=== PATIENT | female | born 1955 | race Caucasian/White ===

== ENCOUNTER 2020-08-18 15:51 | Emergency (ER) | payer OTHER ==
[~2020-08-18] VITALS: Ht 165.1 cm; Wt 70.3 kg
[2020-08-18 15:51] VITALS: BP_SYST 125
[2020-08-18] MEDS ORDERED: KETOROLAC TROMETHAMINE 30 MG VIAL IM ONE (16:15)
[2020-08-18] MEDS ORDERED: DIPH-TET-PERTUS Vaccine 0.5 ML VIAL (ADACEL) I.M. ONE (16:15)
[2020-08-18] MEDS ORDERED: HYDR-4272 PO (17:29)
[2020-08-18] MEDS ORDERED: IBUP-1969 PO (17:29)
[2020-08-18 17:59] VITALS: BP_SYST 125
== END 2020-08-18 19:27 | disposition home or self-care (01) ==
LOC: SED 15:51
DX: S01.83XA Puncture wound without foreign body of other part of head, initial encounter (principal); M54.2 Cervicalgia; E07.9 Disorder of thyroid, unspecified; Z79.899 Other long term (current) drug therapy; W22.8XXA Striking against or struck by other objects, initial encounter; Y93.89 Activity, other specified; Y92.89 Other specified places as the place of occurrence of the external cause; Y99.8 Other external cause status
CPT/HCPCS: 70450-TC; 72125-TC; 76376; 96372; 99285

== ENCOUNTER 2022-02-08 11:20 | Emergency (ER) | payer OTHER ==
[~2022-02-08] VITALS: Ht 165.1 cm; Wt 63.5 kg
[~2022-02-08 11:20] MED LIST: HYDR-4272 PO; IBUP-1969 PO
[2022-02-08 11:27] VITALS: BP_SYST 134
--- NOTE | 2022-02-08 11:45 | NUR ---
Patient to ER bed 4 to gown for evaluation. Side rails up. Report given to Doni HUERTAS.
--- NOTE | 2022-02-08 11:56 | NUR ---
PT BIBA FROM WORK/PT WAS AT WORK FELT CHEST PAIN RADIATING TO BACK DISCRIBED A PULLING SENSATION. PAIN LEVEL 7/10. PT DENIES ARM PAIN OR SHORTNESS OF BREATH. PT O2 LEVEL 96 02 AND HR IS 67. VS ARE WITHIN NORMAL LIMITS/PLACED PT ON MONITOR. PT IS IN BED WITH BED LOWERED, LOCKED AND RAILS UP. WILL CONTINUE TO MONITOR
[2022-02-08 12:31] LABS: BASOPHILS % (AUTO) 0.9 % (0.0-2.0); EOSINOPHILS # (AUTO) 0.1 K/uL (0.0-0.4); EOSINOPHILS % (AUTO) 2.8 % (0.0-4.0); HEMATOCRIT 42.7 % (36-48); HEMOGLOBIN 14.3 g/dL (12.0-16.0); LYMPHOCYTES # (AUTO) 0.9 K/uL (1.0-5.5); LYMPHOCYTES % (AUTO) 21.5 % (20.5-51.5); MEAN CORPUSCULAR HEMOGLOBIN 29 pg (27-31); MEAN CORPUSCULAR HGB CONC 34 % (32-36); MEAN CORPUSCULAR VOLUME 87 fL (79.0-98.0); MONOCYTES # (AUTO) 0.2 K/uL (0.0-1.0); MONOCYTES % (AUTO) 5.7 % (1.7-9.3); NEUTROPHILS % (AUTO) 69.1 % (40.0-70.0); PLATELET COUNT (AUTO) 193 K/uL (130-430); RED BLOOD CELL COUNT(AUTO) 4.94 MIL/uL (4.2-6.2); RED CELL DISTRIBUTION WIDTH 13.8 % (9.0-15.0); WHITE BLOOD COUNT (AUTO) 4.3 K/uL (4.8-10.8)
--- NOTE | 2022-02-08 13:25 | NUR ---
Dr Malloy submited orders for pt
[2022-02-08] MEDS ORDERED: ONDANSETRON HCL 4 MG/2 ML VIAL IVP ONE ×2 (13:30)
[2022-02-08] MEDS ORDERED: NITROGLYCERIN 0.4 MG TAB.SUBL SL ONE (13:30)
[2022-02-08] MEDS ORDERED: ASPIRIN 81 MG TAB.CHEW PO ONE (13:30)
[2022-02-08 13:35] LABS: ANION GAP 6 (5-15); CALCIUM 8.8 mg/dL (8.4-11.0); CHLORIDE 107 mmol/L (98-107); CREATININE 1.09 mg/dL (0.55-1.30); GLUCOSE 90 mg/dL (70-99); POTASSIUM 3.9 mmol/L (3.5-5.1); SODIUM SERUM 140 mmol/L (136-145); UREA NITROGEN, BLOOD 17 mg/dL (8-21)
[2022-02-08 13:36] LABS: GFR AFRICAN AMERICAN 64 mL/min (>90)
--- NOTE | 2022-02-08 13:53 | NUR ---
IV CATH STARTED TO LAC 20G. SCHEDULED MEDS GIVEN, PT EDUCATED ON THE RISKS AND BENEFITS OF EACH MEDICATION. PT VERBALIZED UNDERSTANDING.
[2022-02-08 13:58] LABS: ALANINE AMINOTRANSFERASE 13 U/L (12-78); ALBUMIN 3.4 g/dL (3.4-4.8); ASPARTATE AMINOTRANSFERASE 18 U/L (10-37); TOTAL BILIRUBIN 0.7 mg/dL (0.0-1.0)
[2022-02-08] MEDS ORDERED: ACETAMINOPHEN 325 MG TABLET PO ONE (14:15)
[2022-02-08] MEDS ORDERED: KETOROLAC TROMETHAMINE 15 MG VIAL IVP ONE (14:15)
[2022-02-08] MEDS ORDERED: METOCLOPRAMIDE HCL 10 MG/2 ML VIAL IVP ONE (14:15)
[2022-02-08] MEDS ORDERED: NACL 0.9% 1,000 ML IV ONE (14:15)
[2022-02-08 14:19] LABS: INR 0.9 (0.8-1.2); PROTHROMBIN TIME 9.9 SECS (9.5-12.5)
[2022-02-08 16:56] VITALS: BP_SYST 143
--- NOTE | 2022-02-08 16:58 | NUR ---
Patient does not wish to proceed with medical care recommended by SELF. Patient given information related to possible complications, up to and including , which could occur as a result of leaving hospital at this time. Patient verbalizes understanding of risks involved leaving against medical advice. Patient has signed AMA form.
[2022-02-08] MEDS ORDERED: NALOXONE HCL 0.4 MG/ML AMP (NARCAN) IVP PRN ×2 (18:00)
[2022-02-08] MEDS ORDERED: HYDROcodone/ACETAMIN 5-325 MG TAB (NORCO/ VICODIN) PO PRN (18:00)
[2022-02-08] MEDS ORDERED: ONDANSETRON HCL 4 MG/2 ML VIAL IVP PRN (18:00)
[2022-02-08] MEDS ORDERED: IBUPROFEN 600 MG TABLET PO PRN (18:00)
[2022-02-08] MEDS ORDERED: HYDROcodone/ACETAMIN 10-325 MG TAB PO PRN (18:00)
[2022-02-08] MEDS ORDERED: NORMAL SALINE 5 ML DISP.SYRIN IVF SCH ×2 (22:00)
== END 2022-02-08 16:58 | disposition left against medical advice (07) ==
LOC: SED 11:20 → UNDOADMIN 14:30 → STU 14:30 → UNDODISIN 16:58
DX: R07.89 Other chest pain (principal); R94.31 Abnormal electrocardiogram [ECG] [EKG]; R06.02 Shortness of breath; R42 Dizziness and giddiness; Z79.899 Other long term (current) drug therapy; Z20.822 Contact with and (suspected) exposure to COVID-19
CPT/HCPCS: 99285; 96374; 71045; 96375; 96361; 87426; 80053; 83880; 85025; 85379; 85610; 85730; 84484; 36415; 93005; J1885; J2765; J2405; J7030; G0378

== ENCOUNTER 2022-09-12 11:59 | Emergency (ER) | payer OTHER ==
[~2022-09-12] VITALS: Ht 165.1 cm; Wt 68.0 kg
[2022-09-12 12:00] VITALS: BP_SYST 126
--- NOTE | 2022-09-12 12:05 | NUR ---
Patient triaged and placed in waiting room. VSS and patient appears in no acute distress at this time. Accompanied by SELF, awaiting available bed, and MD notified of need for MSE.
--- NOTE | 2022-09-12 12:46 | NUR ---
PT GIVEN ICE PACK
--- NOTE | 2022-09-12 13:11 | NUR ---
PT COMES TO ER WITH C/O OCCIPITAL HEAD PAIN AFTER SUSTAINING A MECHANICAL FALL, DENIES LOC. DENIES ANY NAUSEA/BLUURED VISION. PT AAOX3M IN NAD. NO BLEEDING NOTED. RESP EVEN AND UNLABORED, ON RA @98%. SKIN W/D/I. PT CAIO BEING ON ANY BLOOD THINNERS. WILL CONT TO MONITOR.
--- NOTE | 2022-09-12 13:12 | NUR ---
DR MUÑOZ IN ROOM FOR EXAM
--- NOTE | 2022-09-12 15:12 | NUR ---
NO ACUTE CHNAGES IN STATUS. PT STABLE, VSS.
[2022-09-12 15:33] VITALS: BP_SYST 126
--- NOTE | 2022-09-12 15:34 | NUR ---
Patient given written and verbal discharge instructions and verbalizes understanding. ER MD discussed with patient the results and treatment provided. Patient in stable condition. ID arm band removed. NO Rx given. Patient educated on pain management and to follow up with PMD. Pain Scale 0/10. Opportunity for questions provided and answered. Medication side effect fact sheet provided.
== END 2022-09-12 15:34 | disposition home or self-care (01) ==
LOC: SED 11:59
DX: S09.90XA Unspecified injury of head, initial encounter (principal); Z79.899 Other long term (current) drug therapy; W10.9XXA Fall (on) (from) unspecified stairs and steps, initial encounter; Y93.89 Activity, other specified; Y92.89 Other specified places as the place of occurrence of the external cause; Y99.8 Other external cause status
CPT/HCPCS: 70450-TC; 76376; 99284